=== PATIENT | male | born 1995 | race Caucasian/White ===

== ENCOUNTER 2016-08-09 21:28 | Emergency (ER) | payer SELFPAY ==
[2016-08-09 21:37] VITALS: BP 141/71; PULSE 91; TEMP 98.3; BMI 28.1
--- NOTE | 2016-08-09 21:47 | PDOC ---
History of Present Illness - General History Source: Patient Exam Limitations: No Limitations - History of Present Illness Initial Comments: 08/09/16 22:32 The patient is a 20 year old male with no significant past medical history and no known history who presents to the ED secondary to an allergic reaction that began 8pm today. The patient states that 3 days ago his body became diffusely itchy and has been worsening until he broke out in full hives around 8pm. He states that he recently began using the gym again, and went for the past two days. He denies going to the gym today however. The patient notes a similar episode that occurred two years ago when the patient used the same gym. He also notes that he has been eating cheese and wheat a lot the past three days. He denies any difficulty breathing or swallowing. The patient denies use of any new soaps, lotions, or detergents. He denies any recent illness, fever, chills, nausea, vomiting, diarrhea, cough, chest pain or urinary symptoms. <Ruth Ann Marley - Last Filed: 08/09/16 22:33> <Jaci oRdriguez - Last Filed: 08/11/16 06:19> - General Chief Complaint: Allergic Reaction Stated Complaint: ALLERGIC REACTION Past History <Ruth Ann Marley - Last Filed: 08/09/16 22:33> - Past Medical History Other medical history: denies - Psycho/Social/Smoking Cessation Hx Suicidal Ideation: No Smoking History: Never smoked <Jaci Rodriguez - Last Filed: 08/11/16 06:19> - Past Medical History Allergies/Adverse Reactions: Allergies Allergy/AdvReac Type Severity Reaction Status Date / Time No Known Allergies Allergy Verified 08/09/16 21:36 Home Medications: Ambulatory Orders Diphenhydramine HCl [Benadryl -] 25 mg PO Q6H #30 capsule 08/09/16 Prednisone [Deltasone -] 2 tab PO DAILY #10 tablet 08/09/16 Ranitidine HCl [Zantac] 300 mg PO DAILY #30 tablet 08/09/16 Review of Systems - Review of Systems Able to Perform ROS?: Yes Comments:: 08/09/16 22:39 GENERAL/CONSTITUTIONAL: No fever or chills. No weakness. HEAD, EYES, EARS, NOSE AND THROAT: No change in vision. No ear pain or discharge. No sore throat. CARDIOVASCULAR: No chest pain or shortness of breath. RESPIRATORY: No cough, wheezing, or hemoptysis. GASTROINTESTINAL: No nausea, vomiting, diarrhea or constipation. GENITOURINARY: No dysuria, frequency, or change in urination. MUSCULOSKELETAL: No joint or muscle swelling or pain. No neck or back pain. SKIN: Present: diffuse allergic reaction rash NEUROLOGIC: No headache, vertigo, loss of consciousness, or change in strength/ sensation. ENDOCRINE: No increased thirst. No abnormal weight change. HEMATOLOGIC/LYMPHATIC: No anemia, easy bleeding, or history of blood clots. ALLERGIC/IMMUNOLOGIC: No hives or skin allergy. All Other Systems: Reviewed and Negative <Ruth Ann Marley - Last Filed: 08/09/16 22:33> *Physical Exam - Vital Signs Last Vital Signs Temp Pulse Resp BP Pulse Ox 98.3 F 91 H 18 141/71 100 08/09/16 21:33 08/09/16 21:33 08/09/16 21:33 08/09/16 21:33 08/09/16 21:33 - Physical Exam Comments: 08/09/16 22:39 GENERAL: Awake, alert, and fully oriented, in no acute distress HEAD: No signs of trauma EYES: PERRLA, EOMI, sclera anicteric, conjunctiva clear ENT: Auricles normal inspection, hearing grossly normal, nares patent, oropharynx clear without exudates. Moist mucosa NECK: Normal ROM, supple, no lymphadenopathy, JVD, or masses LUNGS: Breath sounds equal, clear to auscultation bilaterally. No wheezes, and no crackles HEART: Regular rate and rhythm, normal S1 and S2, no murmurs, rubs or gallops ABDOMEN: Soft, nontender, normoactive bowel sounds. No guarding, no rebound. No masses EXTREMITIES: Normal range of motion, no edema. No clubbing or cyanosis. No cords, erythema, or tenderness NEUROLOGICAL: Cranial nerves II through XII grossly intact. Normal speech, normal gait SKIN: Warm, Dry, normal turgor, no rashes or lesions noted. <Ruth Ann Marley - Last Filed: 08/09/16 22:33> - Vital Signs Last Vital Signs Temp Pulse Resp BP Pulse Ox 98.3 F 91 H 18 141/71 100 08/09/16 21:33 08/09/16 21:33 08/09/16 21:33 08/09/16 21:33 08/09/16 21:33 <Jaci Rodriguez - Last Filed: 08/11/16 06:19> Medical Decision Making - Medical Decision Making 08/11/16 06:16 Pt comes with total body hives. We discussed possible causes. No SOB. Lips minimally affected. Throat and tongue not affected. Breathing normally. Pt will follow with inspector glass or mirror. He will keep a food diary. He improved markedly with benadyl zantac and decadron <Jaci Rodriguez - Last Filed: 08/11/16 06:19> *DC/Admit/Observation/Transfer - Attestations Scribe Attestion: 08/09/16 22:40 Documentation prepared by Ruth Ann Marley, acting as medical affairs manager for Jaci Rodriguez MD. <Ruth Ann Marley - Last Filed: 08/09/16 22:33> - Discharge Dispostion Admit: No <Jaci Rodriguez - Last Filed: 08/11/16 06:19> Diagnosis at time of Disposition: Allergic reaction - Discharge Dispostion Disposition: HOME Condition at time of disposition: Stable - Prescriptions Prescriptions: Diphenhydramine HCl [Benadryl -] 25 mg PO Q6H #30 capsule Prednisone [Deltasone -] 2 tab PO DAILY #10 tablet Ranitidine HCl [Zantac] 300 mg PO DAILY #30 tablet - Patient Instructions Printed Discharge Instructions: DI for Food Allergy
[2016-08-09] MEDS ORDERED: diphenhydrAMINE HCL 25 MG CAPSULE (FP) PO ONE ×2 (21:54→21:56)
[2016-08-09] MEDS ORDERED: DEXAMETHASONE SOD PHOSPHATE 10 MG/1 ML VIAL ONE (21:54)
[2016-08-09] MEDS ORDERED: RANITIDINE HCL 150 MG TABLET (FP) ONE (21:56)
[2016-08-09] MEDS ORDERED: DEXAMETHASONE LIQUID 0.5 MG/5 ML 240 ML BULK BOTTLE PO ONE (21:57)
== END 2016-08-09 23:16 | disposition home or self-care (01) ==
LOC: JER 21:28
DX: T78.40XA Allergy, unspecified, initial encounter (principal)
CPT/HCPCS: 99281-25

== ENCOUNTER 2017-07-15 14:54 | Emergency (ER) | payer OTHER ==
[2017-07-15 15:22] VITALS: BP 166/77; PULSE 84; TEMP 98.3; BMI 26.6
--- NOTE | 2017-07-15 15:24 | PDOC ---
Rapid Medical Evaluation Time Seen by Provider: 07/15/17 15:19 Medical Evaluation: Allergies Allergy/AdvReac Type Severity Reaction Status Date / Time No Known Allergies Allergy Verified 08/09/16 21:36 07/15/17 15:19 The patient presents with a chief complaint of: chlamydia testing. His is newly and was tested + for chyamydia and he is here to be tested. He denies any symptoms. I have performed a brief in-person evaluation of this patient; Pertinent physical exam findings: ambulatory, in no respiratory distress I have ordered the following: ua, std testing The patient will proceed to the ED for further evaluation.
--- NOTE | 2017-07-15 15:45 | PDOC ---
History of Present Illness - General Chief Complaint: Revisit, Lab Variance Stated Complaint: PAIN, LAB VARIANCE Time Seen by Provider: 07/15/17 15:19 History Source: Patient Exam Limitations: No Limitations - History of Present Illness Initial Comments: 07/15/17 16:05 patient came in for evaluation and treatment for chlamydia as . Patient denies fever, drainage, any swelling or tenderness testicles. Denies ulcerations or Timing/Duration: unsure Severity: mild Past History - Past Medical History Allergies/Adverse Reactions: Allergies Allergy/AdvReac Type Severity Reaction Status Date / Time No Known Allergies Allergy Verified 07/15/17 15:19 Home Medications: Ambulatory Orders NK [No Known Home Medication] 07/15/17 COPD: No DVT: No - Immunization History Immunization Up to Date: Yes - Suicide/Smoking/Psychosocial Hx Smoking History: Never smoked Have you smoked in the past 12 months: No Information on smoking cessation initiated: No Hx Alcohol Use: No Drug/Substance Use Hx: No Substance Use Type: None Review of Systems - Review of Systems Able to Perform ROS?: Yes Is the patient limited Sami proficient: Yes Constitutional: Yes: See HPI. No: Symptoms Reported HEENTM: No: Symptoms Reported Respiratory: No: Symptoms reported : Yes: Symptoms Reported, See HPI. No: Testicular Mass, Testicular Swelling, Lesions, Testicular Pain Musculoskeletal: No: Symptoms Reported Neurological: Yes: Symptoms reported All Other Systems: Reviewed and Negative *Physical Exam - Vital Signs Last Vital Signs Temp Pulse Resp BP Pulse Ox 98.3 F 84 16 166/77 100 07/15/17 15:20 07/15/17 15:20 07/15/17 15:20 07/15/17 15:20 07/15/17 15:20 - Physical Exam General Appearance: Yes: Nourished, Appropriately Dressed. No: Apparent Distress HEENT: positive: NONA, Normal ENT Inspection, TMs Normal, Pharynx Normal Neck: positive: Supple Respiratory/Chest: positive: Lungs Clear Gastrointestinal/Abdominal: positive: Normal Bowel Sounds, Soft. negative: Tender Male Genitalia: positive: normal genitalia (noncircumcised ). negative: discharge, testicular tenderness, testicular mass, epididymus tender, inguinal hernia, CVAT Extremity: positive: Normal Capillary Refill Integumentary: positive: Normal Color, Dry, Warm Neurologic: positive: airways control specialist II-XII NML intact, Fully Oriented, Alert, Normal Mood/ Affect, Normal Response, Motor Strength 09/05 Medical Decision Making - Medical Decision Making 07/15/17 HIV testing negative, patient understands treatment for chlamydia and gonorrhea has been completed today, and that those test results will not be available for approximately one week. Will also receive test and RPR at same time. Ceftriaxone 250 mg IM for gonorrhea, and Zithromax 1 g by mouth for chlamydia treatment is 1 time doses. No reaction after 30 minutes *DC/Admit/Observation/Transfer Diagnosis at time of Disposition: Exposure to STD - Discharge Dispostion Disposition: HOME Condition at time of disposition: Stable Admit: No - Referrals - Patient Instructions Printed Discharge Instructions: How to Detect and Treat STDs Additional Instructions: You been treated today with azithromycin 1 g by mouth for treatment of chlamydia You have been treated with Rocephin 250 mg injection for treatment of gonorrhea The syphilis test, gonorrhea and chlamydia testing will not be completed for the next few days. You may call and leave message for return phone call with lab results. Be sure to be clear with your name, birthdate, and phone number Always use condoms with the partners Followup with PROGRAM PRODUCTION SPECIALIST or PMD in one week for reevaluation and retesting. - Post Discharge Activity Forms/Work/School Notes: Back to Work
[2017-07-15 16:00] LABS: URINE APPEARANCE CLEAR; URINE BILIRUBIN NEGATIVE (NEGATIVE); URINE BLOOD NEGATIVE (NEGATIVE); URINE COLOR YELLOW; URINE GLUCOSE (UA) NEGATIVE (NEGATIVE); URINE KETONE NEGATIVE (NEGATIVE); URINE LEUK ESTERASE NEGATIVE (NEGATIVE); URINE NITRITE NEGATIVE (NEGATIVE); URINE PROTEIN NEGATIVE (NEGATIVE); URINE UROBILINOGEN NEGATIVE mg/dL (0.2-1.0)
[2017-07-15] MEDS ORDERED: AZITHROMYCIN 1 GM PACKET PO ONE (16:18)
[2017-07-15] MEDS ORDERED: AZITHROMYCIN 500 MG TABLET ONE (16:22)
== END 2017-07-15 18:25 | disposition home or self-care (01) ==
LOC: JERFT 14:54
DX: Z11.3 Encounter for screening for infections with a predominantly sexual mode of transmission (principal)
CPT/HCPCS: 36415; 81003; 86593; 87389; 87491; 87591; 96372; 99281-25